=== PATIENT | female | born 1945 | race Caucasian/White ===

== ENCOUNTER 2017-08-23 09:57 | Observation (INO) | payer MEDICARE, BC ==
[2017-08-23] MEDS ORDERED: Dextrose 5%-0.45% NaCl 1,000 ML IV SCH (10:15)
[2017-08-23] MEDS ORDERED: Lidocaine 2% 100 MG/5 ML Syringe IVPUSH PRN (10:29)
[2017-08-23] MEDS ORDERED: Atropine 0.1 MG/ML 10 ML Syringe IVPUSH PRN (10:29)
[2017-08-23] MEDS ORDERED: EPINEPHrine 1:10,000 1 MG/10 ML Syringe IVPUSH PRN (10:29)
[2017-08-23] MEDS ORDERED: Nitroglycerin 0.4 MG Tab.SL SL PRN (10:29)
[2017-08-23] MEDS: Omeprazole 20 MG Cap.CR PO SCH (10:58)
[2017-08-23] MEDS ORDERED: Acetaminophen 325 MG Tab PO ONE (13:09)
[2017-08-23] MEDS ORDERED: diphenhydrAMINE 25 MG Cap PO ONE (13:09)
[2017-08-23] MEDS ORDERED: Sodium Chloride 0.9% 250 ML IV ONE (13:12)
[2017-08-23] MEDS ORDERED: Albuterol HFA 18 Gm Inhaler INH PRN (14:56)
[2017-08-23] MEDS: Metoprolol Tartrate 25 MG Tab PO SCH (20:54)
[2017-08-23] MEDS ORDERED: Montelukast 10 MG Tab PO SCH (21:00)
[2017-08-24] MEDS: Omeprazole 20 MG Cap.CR PO SCH (07:35)
[2017-08-24 07:47] LABS: CHLORIDE,CL 107 mmol/L (98-115); SODIUM,NA 141 mmol/L (136-145)
[2017-08-24] MEDS ORDERED: Oxybutynin 5 MG Tab.ER PO SCH (09:00)
[2017-08-24] MEDS ORDERED: Cholecalciferol (Vitamin D3) 1,000 Unit Tab PO SCH (09:00)
[2017-08-24] MEDS: Metoprolol Tartrate 25 MG Tab PO SCH (09:13)
[2017-08-24] MEDS ORDERED: Sodium Chloride 0.9% 5 ML Syringe FLUSH PRN (09:38)
[2017-08-24 11:47] VITALS: BP 115/63
--- NOTE | 2017-08-29 08:09 | DISCH ---
FINAL DIAGNOSES: 1. Anemia, possibly due to anticoagulation. 2. Paroxysmal atrial fibrillation, LAZARO VASc score 2 (HAS-BLED score low 2/9). HISTORY: This 71-year-old female presented to the clinic complaining of throbbing of her heart, some palpitations. She became quite concerned. She became weak and dizzy. She does have a history of atrial fibrillation, but she stated that it was just did not feel the same as when she had her atrial fibrillation episodes. She had been taking Xarelto for several months now. She denied any chest pain, back pain, or any arm pain. No radiation. She has been short of breath few days prior. However, no cough. No nasal congestion. No fever. Just overall generally extremely fatigued. No diarrhea, constipation, or abdominal pain, however. She did admit to some dark stools. She does have a history of GERD, which she states causes irritation to her heart. She did have an upper GI barium x-ray. Has not had EGD, but her last colonoscopy was in 2014. Also has a history of hypothyroidism with endocarditis. Also, hyperlipidemia, overactive bladder with some incontinence. She was admitted due to hemoglobin of 7.2 to 7.4. She was admitted for status post blood transfusion. HOSPITAL COURSE: Hospital course went well. She did receive 2 units of packed red blood cells without any complications or side effects, her hemoglobin responded to 9.4. She no longer had any fast tachycardia. Xarelto was stopped. She was monitored on telemetry. Her troponin was normal. She did have an EKG which showed atrial fibrillation with a ventricular rate of about 100 at the clinic. She did have a stool for occult blood which was negative. She never became hemodynamically unstable, although she was slightly tachycardic upon admission. She was also started on PPI. LABORATORY DATA: Upon discharge, white count 7.2, hemoglobin responded to 9.2 with 31.1, status post 2 units of blood transfusion. No neutrophilia. Sodium, potassium, BUN, creatinine, glucose, AST, ALT, alkaline phosphatase, troponin, total protein and albumin all normal. PHYSICAL EXAM ON DISCHARGE: VITAL SIGNS: Blood pressure 149/75, temperature 98.7, heart rate 66, O2 sats 96% on room air, respiratory rate 12. GENERAL: Alert and oriented. CARDIOVASCULAR: Slightly irregular. Rate normal. S1 and S2. LUNGS: Clear to auscultation. EXTREMITIES: No peripheral edema. INTEGUMENTARY: Slightly pallor. DISCHARGE MEDICATIONS: 1. Omeprazole 20 mg p.o. daily (newly added). 2. Xarelto, discontinued. 3. The patient can continue on all other home medications. DISPOSITION: The patient will be discharged from the hospital. She will follow up with the [facility]. She has to monitor her heart rate. If she does have any dizziness, palpitations, or chest pain, she is supposed to seek immediate care. She will be scheduled for a colonoscopy at the [facility] soon. /[id number]/MODL
== END 2017-08-24 15:00 | disposition home or self-care (01) ==
LOC: KA.MS 10:02
PROVIDERS: ADMIT Physician Assistant Medical; ATTEND Nurse Practitioner Family
DX: D64.9 Anemia, unspecified (principal); I48.0 Paroxysmal atrial fibrillation; K21.9 Gastro-esophageal reflux disease without esophagitis; E03.9 Hypothyroidism, unspecified; N32.81 Overactive bladder; R32 Unspecified urinary incontinence; I38 Endocarditis, valve unspecified; E78.2 Mixed hyperlipidemia; R06.02 Shortness of breath; M25.50 Pain in unspecified joint; M89.9 Disorder of bone, unspecified; M94.9 Disorder of cartilage, unspecified; R82.71 Bacteriuria; E66.9 Obesity, unspecified; Z68.37 Body mass index [BMI] 37.0-37.9, adult; Z80.3 Family history of malignant neoplasm of breast; Z80.0 Family history of malignant neoplasm of digestive organs; Z79.01 Long term (current) use of anticoagulants; Z79.2 Long term (current) use of antibiotics; Z79.899 Other long term (current) drug therapy; Z90.710 Acquired absence of both cervix and uterus; Z98.890 Other specified postprocedural states
CPT/HCPCS: 36415; 36430; 80053; 82270; 84484; 85025; 86850; 86900; 86901; 86920; 86922; A9270; G0378; J7042; J7050; P9016

== ENCOUNTER 2017-08-29 09:54 | Day surgery (SDC) | payer MEDICARE, BC ==
[2017-08-29] MEDS ORDERED: Lactated Ringers 1,000 ML IV SCH (10:00)
[2017-08-29] MEDS ORDERED: Sodium Chloride 0.9% 5 ML Syringe FLUSH PRN (10:00)
[2017-08-29] MEDS ORDERED: Midazolam 1 MG/ML 2 ML SDV ONE (10:35)
[2017-08-29] MEDS ORDERED: fentaNYL 100 MCG/2 ML SDV ONE (10:35)
[2017-08-29] MEDS ORDERED: Propofol 200 MG/20 ML SDV ONE (10:35)
[2017-08-29] MEDS ORDERED: fentaNYL 100 MCG/2 ML SDV IV ONE (11:18)
[2017-08-29] MEDS ORDERED: Midazolam 1 MG/ML 2 ML SDV IV ONE (11:18)
[2017-08-29] MEDS ORDERED: Propofol 200 MG/20 ML SDV IV ONE (11:18)
[2017-08-29] MEDS ORDERED: EPINEPHrine 1:10,000 1 MG/10 ML Syringe ONE (11:20)
--- NOTE | 2017-08-29 11:47 | PCM.PRNOTE ---
- Free Text/Narrative Note: INFORMED CONSENT: Patient is here today for elective upper GI endoscopy. All aspects of this procedure have been discussed with the patient. All possible complications also, including possibility of perforation, infection, pain, bleeding, numbness of the throat, swallowing difficulty and unknown complications. In the event of perforation the patient may need surgical exploration to repair the defect. The patient understands fully well. Patient did not have any further questions for me at the end of my interview. The patient wishes for me to proceed. INSTRUMENT USED: Video gastroscope ANESTHESIA: [MAC] ASA CLASSIFICATION: [2] PROCEDURE PERFORMED: [] PHARYNX: Normal. ESOPHAGUS: Normal. Proximal: Normal. Middle: Normal. Lower: Normal. GE Junction: Normal. STOMACH: Normal. Cardia: Normal. Fundus: Normal. Lesser Curvature: Normal. Greater Curvature: Normal. Antrum: Normal. Pylorus: Normal. DUODENUM: Normal. First Part: Normal. Second Part: Normal. Third Part: Normal. RETROFLEXION: Normal. BIOPSY: None. TOLERANCE: Excellent. COMPLICATIONS: None. INFORMED CONSENT: Patient is here today for elective colonoscopy. All aspects of this procedure have been discussed with the patient. All possible complications also, including possibility of perforation, infection, pain, bleeding and unknown complications. In the event of perforation patient may need to have abdominal exploration, colon resection, colostomy and even was discussed. Anesthetic complications were handled by anesthesia department. The patient understands fully well. Patient did not have any further questions for me at the end of my interview. The patient wishes for me to proceed. PREOPERATIVE DIAGNOSIS/INDICATIONS: [Severe anemia hemoglobin of 7 possible lower GI bleeding] POSTOPERATIVE DIAGNOSIS: [Polyp at the sigmoid colon otherwise negative. ] INSTRUMENT USED: Olympus videocolonoscope. ASA CLASSIFICATION: [2] ANESTHESIA: Continuous EKG, oximetry and intermittent blood pressure and respiratory monitoring were performed throughout the procedure. IV Versed and Fentanyl were administered. PROCEDURE PERFORMED: Colonoscopy POSITIONS OF PATIENT: Left lateral. RECTUM: Normal. SIGMOID COLON: Black polyp was identified and removed using the loop electrocautery. We also placed a resolution clip for hemostasis as the patient is on anticoagulants.. DESCENDING COLON: Normal. SPLENIC FLEXURE: Normal. TRANSVERSE COLON: Normal. HEPATIC FLEXURE: Normal. ASCENDING COLON: Normal. CECUM: Normal. ILEOCECAL VALVE: Normal. BIOPSY: None. TOLERANCE: Excellent. COMPLICATIONS: None.
[2017-08-29 13:00] VITALS: BP 111/53
== END 2017-08-29 13:10 | disposition home or self-care (01) ==
LOC: KA.SDS 09:54
PROVIDERS: ATTEND Family Medicine
DX: K63.5 Polyp of colon (principal); K21.9 Gastro-esophageal reflux disease without esophagitis; E03.9 Hypothyroidism, unspecified; E78.2 Mixed hyperlipidemia; I48.1 Persistent atrial fibrillation; E66.9 Obesity, unspecified; Z68.30 Body mass index [BMI] 30.0-30.9, adult; Z79.899 Other long term (current) drug therapy
CPT/HCPCS: 43235; 45388; 88305; J2250; J2704; J3010; J7120